=== PATIENT | female | born 1990 | race Two or more races ===

== ENCOUNTER → 2018-08-25 | Outpatient (CLI) | payer BC, OTHER ==
[~2018-08-25] MED LIST: DOCU240C31 PO; IBUP-1222 PO; METF500T17 PO; OXYC-302 PO; ZOLM5TAB10 PO
[2018-08-25 16:17] LABS: BASOPHILS # (AUTO) 0.13 x10^3/uL (0-0.1); BASOPHILS % (AUTO) 1 % (0-1); EOSINOPHILS # (AUTO) 0.26 x10^3/uL (0-0.4); EOSINOPHILS % (AUTO) 2 % (1-7); LYMPHOCYTES # (AUTO) 4.35 x10^3/uL (1-3.4); LYMPHOCYTES % (AUTO) 35 % (22-44); MD NO; MEAN CORPUSCULAR HEMOGLOBIN 27.8 pg (27.0-34.8); MEAN CORPUSCULAR HGB CONC 33.1 g/dL (32.4-35.8); MEAN CORPUSCULAR VOLUME 83.9 fL (80-100); MEAN PLATELET VOLUME 9.8 fL (7.4-10.4); MONOCYTES # (AUTO) 0.67 x10^3/uL (0.2-0.8); MONOCYTES % (AUTO) 6 % (2-9); NEUTROPHILS # (AUTO) 6.97 x10^3/uL (1.8-6.8); NEUTROPHILS % (AUTO) 56 % (42-75); PLATELET COUNT 294 x10^3/uL (130-400); RED CELL DISTRIBUTION WIDTH 15.3 % (9.6-15.2)
[2018-08-25 16:24] LABS: ANION GAP 5 mmol/L (5-15); CHLORIDE 108 mmol/L (98-107)
[2018-08-25 16:25] LABS: ALANINE AMINOTRANSFERASE 43 U/L (12-78); ALBUMIN 3.8 g/dL (3.4-5.0); CALCIUM 8.9 mg/dL (8.5-10.1); CREATININE 1.17 mg/dL (0.55-1.02)
[2018-08-25 16:27] LABS: ALKALINE PHOSPHATASE 70 U/L (45-117); BILIRUBIN,TOTAL 0.3 mg/dL (0.2-1.0)
== END | disposition home or self-care (01) ==
LOC: STAR 15:33
PROVIDERS: ATTEND Obstetrics & Gynecology
DX: Z01.818 Encounter for other preprocedural examination (principal)
CPT/HCPCS: 36415; 80053; 85025; 93005

== ENCOUNTER 2018-09-01 10:53 | Day surgery (SDC) | payer BC, OTHER ==
[~2018-09-01] VITALS: Ht 157.5 cm; Wt 90.6 kg
[~2018-09-01 10:53] MED LIST changes: +BUPIVACAINE/PF 0.25% ONE; +EPINEPHRINE 1 MG/ML, 1ML ONE; +SILVER NITRATE STICK TP ONE
[2018-09-01] MEDS ORDERED: LACTATED RINGERS 1,000 ML IV SCH ×2 (11:19→22:00)
[2018-09-01] MEDS ORDERED: APREPITANT 40 MG CAPSULE PO ONE (11:30)
[2018-09-01 11:41] LABS: HCG UR SG 1.024 (1.003-1.030)
[2018-09-01 11:45] VITALS: BP 113/75
[2018-09-01 12:50] LABS: BASOPHILS # (AUTO) 0.04 x10^3/uL (0-0.1); BASOPHILS % (AUTO) 1 % (0-1); EOSINOPHILS # (AUTO) 0.23 x10^3/uL (0-0.4); EOSINOPHILS % (AUTO) 3 % (1-7); LYMPHOCYTES # (AUTO) 3.61 x10^3/uL (1-3.4); LYMPHOCYTES % (AUTO) 46 % (22-44); MD NO; MEAN CORPUSCULAR HEMOGLOBIN 27.5 pg (27.0-34.8); MEAN CORPUSCULAR VOLUME 83.2 fL (80-100); MONOCYTES # (AUTO) 0.46 x10^3/uL (0.2-0.8); MONOCYTES % (AUTO) 6 % (2-9); NEUTROPHILS # (AUTO) 3.58 x10^3/uL (1.8-6.8); NEUTROPHILS % (AUTO) 45 % (42-75); PLATELET COUNT 311 x10^3/uL (130-400); RED BLOOD COUNT 5.32 x10^6/uL (3.82-5.3); RED CELL DISTRIBUTION WIDTH 14.9 % (9.6-15.2)
[2018-09-01] MEDS ORDERED: SILVER NITRATE STICK TP ONE (16:09)
[2018-09-01] MEDS ORDERED: BUPIVACAINE/PF 0.25% ONE (16:09)
[2018-09-01] MEDS ORDERED: EPINEPHRINE 1 MG/ML, 1ML ONE (16:09)
[2018-09-01] MEDS ORDERED: MIDAZOLAM 1 MG/ML, 2ML ONE (16:40)
[2018-09-01] MEDS ORDERED: FENTANYL PF 250 MCG/5ML ONE (16:41)
[2018-09-01] MEDS ORDERED: SUGAMMADEX 200 MG/2 ML IVPush ONE (17:36)
[2018-09-01] MEDS ORDERED: CEFAZOLIN 1,000 MG ONE (17:45)
[2018-09-01] MEDS ORDERED: SUCCINYLCHOLINE 20 MG/ML, 10ML ONE (17:45)
[2018-09-01] MEDS ORDERED: PROPOFOL 10 MG/ML, 20ML ONE (17:45)
[2018-09-01] MEDS ORDERED: ONDANSETRON 2MG/ML, 2ML ONE (17:45)
[2018-09-01] MEDS ORDERED: GLYCOPYRROLATE 0.2MG/1ML, 5ML ONE (17:45)
[2018-09-01] MEDS ORDERED: ROCURONIUM 10MG/ML,5ML ONE (17:45)
[2018-09-01] MEDS ORDERED: DEXAMETHASONE 4 MG/ML, 1ML ONE (17:45)
[2018-09-01] MEDS ORDERED: NEOSTIGMINE 1 MG/ML, 10ML ONE (17:45)
[2018-09-01] MEDS ORDERED: OXYcodone 5 MG/5 ML ORAL.SOL UDC ONE (18:06)
[2018-09-01] MEDS ORDERED: FENTANYL PF 100 MCG/2ML ONE (18:06)
[2018-09-01] MEDS ORDERED: HYDROmorphone 2 MG/ML, 1ML ONE (18:06)
[2018-09-01] MEDS: HYDROmorphone 2 MG/ML, 1ML IVPush PRN ×4 (18:10→18:56)
[2018-09-01] MEDS: FENTANYL PF 100 MCG/2ML IV PRN ×2 (18:10→18:19)
[2018-09-01] MEDS ORDERED: KETOROLAC 30 MG/1 ML ONE (18:10)
[2018-09-01] MEDS ORDERED: LORazepam 2 MG/ML, 1ML ONE (18:26)
[2018-09-01] MEDS ORDERED: ACETAMINOPHEN 325 MG TABLET PO PRN (18:30)
[2018-09-01] MEDS ORDERED: MEPERIDINE/PF 25MG/0.5ML IVPush PRN (18:30)
[2018-09-01] MEDS ORDERED: KETOROLAC 30 MG/1 ML IVPush ONE (18:30)
[2018-09-01] MEDS ORDERED: PROMETHAZINE 25 MG/ML, 1ML IV PRN (18:30)
[2018-09-01] MEDS ORDERED: LORazepam 2 MG/ML, 1ML IVPush PRN (18:30)
[2018-09-01] MEDS ORDERED: OXYcodone 5 MG/5 ML ORAL.SOL UDC PO PRN (18:30)
[2018-09-01] MEDS ORDERED: ONDANSETRON 2MG/ML, 2ML IV PRN ×2 (18:30→22:00)
[2018-09-01] MEDS ORDERED: ONDANSETRON ODT 8 MG PO PRN (18:30)
[2018-09-01] MEDS ORDERED: morphine SULFATE 10 MG/ML, 1ML IV PRN (22:00)
[2018-09-01] MEDS ORDERED: KETOROLAC 30 MG/1 ML IV PRN (22:00)
[2018-09-01] MEDS ORDERED: OXYcodone/APAP 5/325MG TABLET PO PRN (22:00)
[2018-09-01] MEDS ORDERED: IBUPROFEN 600 MG TABLET PO PRN (22:00)
== END 2018-09-01 23:15 | disposition home or self-care (01) ==
LOC: OUT 10:53 → 4NOR 19:35 → OUT 23:15
PROVIDERS: ATTEND Obstetrics & Gynecology
DX: Z30.2 Encounter for sterilization (principal); E11.9 Type 2 diabetes mellitus without complications; G43.909 Migraine, unspecified, not intractable, without status migrainosus; Z98.890 Other specified postprocedural states; Z90.49 Acquired absence of other specified parts of digestive tract; Z79.899 Other long term (current) drug therapy; Z79.84 Long term (current) use of oral hypoglycemic drugs
CPT/HCPCS: 36415; 58661; 81025; 82962; 85025; 86850; 86900; 88302; J0171; J0330; J0690; J1100; J1170; J1885; J2060; J2250; J2405; J2704; J2710; J3010; J3490; J7120; J8501; G0378

== ENCOUNTER 2020-11-21 05:42 | Day surgery (SDC) | payer BC ==
[2020-11-18 15:55] LABS: ALANINE AMINOTRANSFERASE 73 U/L (12-78); ALBUMIN 3.4 g/dL (3.4-5.0); ANION GAP 5 mmol/L (5-15); BASOPHILS % (AUTO) 1 % (0-1); CALCIUM 8.8 mg/dL (8.5-10.1); CHLORIDE 108 mmol/L (98-107); CREATININE 0.71 mg/dL (0.55-1.02); EOSINOPHILS % (AUTO) 2 % (1-7); LYMPHOCYTES % (AUTO) 42 % (22-44); MEAN CORPUSCULAR HEMOGLOBIN 28.4 pg (27.0-34.8); MEAN CORPUSCULAR HGB CONC 33.6 g/dL (32.4-35.8); MEAN PLATELET VOLUME 9.7 fL (7.4-10.4); MONOCYTES % (AUTO) 5 % (2-9); NEUTROPHILS % (AUTO) 50 % (42-75); PLATELET COUNT 268 x10^3/uL (130-400); RED BLOOD COUNT 4.87 x10^6/uL (3.82-5.3); RED CELL DISTRIBUTION WIDTH 16.1 % (9.6-15.2)
[2020-11-18 15:59] LABS: ALKALINE PHOSPHATASE 92 U/L (45-117); BILIRUBIN,TOTAL 0.4 mg/dL (0.2-1.0); TOTAL PROTEIN 7.6 g/dL (6.4-8.2)
[2020-11-18 16:01] LABS: MICROSCOPIC NOT IND
[~2020-11-21] VITALS: Ht 157.5 cm; Wt 87.4 kg
[~2020-11-21 05:42] MED LIST changes: -BUPIVACAINE/PF 0.25% ONE; -EPINEPHRINE 1 MG/ML, 1ML ONE; -OXYC-302 PO; +OXYC1TAB14 PO; -SILVER NITRATE STICK TP ONE; -ZOLM5TAB10 PO; +ZOLM5TAB34 PO
[2020-11-21 06:06] VITALS: BP 121/83
[2020-11-21] MEDS ORDERED: CHLORHEXIDINE 15 ML UDC PO ONE (06:30)
[2020-11-21] MEDS ORDERED: LACTATED RINGERS 1,000 ML IV SCH (06:30)
[2020-11-21] MEDS ORDERED: EPINEPHRINE 1 MG/ML, 1ML ONE (07:14)
[2020-11-21] MEDS ORDERED: MANNITOL PMX 20% 500 ML ONE (07:14)
[2020-11-21] MEDS ORDERED: BUPIVACAINE/PF 0.25% ONE (07:14)
[2020-11-21] MEDS ORDERED: FENTANYL PF 250 MCG/5ML ONE (07:21)
[2020-11-21] MEDS ORDERED: MIDAZOLAM 1 MG/ML, 2ML ONE (07:21)
[2020-11-21] MEDS ORDERED: MEPERIDINE/PF 25MG/0.5ML IVPush PRN (07:30)
[2020-11-21] MEDS ORDERED: LABETALOL 5MG/ML, 20ML IV PRN (07:30)
[2020-11-21] MEDS ORDERED: HALOPERIDOL 5 MG/ML IV PRN (07:30)
[2020-11-21] MEDS ORDERED: DIPHENHYDRAMINE 50 MG/ML, 1ML IVPush PRN (07:30)
[2020-11-21] MEDS ORDERED: hydrALAzine 20 MG/ML, 1ML IV PRN (07:30)
[2020-11-21] MEDS ORDERED: PROMETHAZINE 25 MG/ML, 1ML IVPush PRN (07:30)
[2020-11-21] MEDS ORDERED: ACETAMINOPHEN 325 MG TABLET PO PRN (07:30)
[2020-11-21] MEDS ORDERED: EPHEDRINE 50 MG/ML, 1ML ONE (07:49)
[2020-11-21] MEDS ORDERED: HYDROmorphone 1 MG/ML, 1ML INJ ONE ×2 (08:52→10:25)
[2020-11-21] MEDS ORDERED: GLYCOPYRROLATE 0.2MG/1ML, 5ML ONE (09:06)
[2020-11-21] MEDS ORDERED: SUCCINYLCHOLINE 20 MG/ML, 10ML ONE (09:06)
[2020-11-21] MEDS ORDERED: ROCURONIUM 10MG/ML,5ML ONE (09:06)
[2020-11-21] MEDS ORDERED: CEFAZOLIN 1,000 MG ONE (09:06)
[2020-11-21] MEDS ORDERED: PROPOFOL 10 MG/ML, 20ML ONE (09:06)
[2020-11-21] MEDS ORDERED: DEXAMETHASONE 4 MG/ML, 1ML ONE (09:06)
[2020-11-21] MEDS ORDERED: ONDANSETRON 2MG/ML, 2ML ONE (09:06)
[2020-11-21] MEDS ORDERED: NEOSTIGMINE 1 MG/ML, 10ML ONE (09:06)
[2020-11-21] MEDS ORDERED: PROMETHAZINE 25 MG/ML, 1ML ONE (09:32)
[2020-11-21] MEDS ORDERED: OXYcodone 5 MG/5 ML ORAL.SOL UDC ONE (09:44)
[2020-11-21] MEDS ORDERED: FENTANYL PF 100 MCG/2ML ONE (09:44)
[2020-11-21] MEDS: FENTANYL PF 100 MCG/2ML IV PRN ×2 (09:46→10:00)
[2020-11-21] MEDS: OXYcodone 5 MG/5 ML ORAL.SOL UDC PO PRN ×2 (10:04→14:16)
[2020-11-21] MEDS: HYDROmorphone 1 MG/ML, 1ML INJ IVPush PRN ×2 (10:27→10:33)
[2020-11-21] MEDS ORDERED: KETOROLAC 30 MG/1 ML IVPush PRN (14:00)
[2020-11-21] MEDS ORDERED: OXYcodone 5 MG/5 ML ORAL.SOL UDC PO PRN (14:00)
== END 2020-11-21 17:45 | disposition home or self-care (01) ==
LOC: OUT 05:42
PROVIDERS: ATTEND Obstetrics & Gynecology Gynecology
DX: N80.0 Endometriosis of uterus (principal); N94.6 Dysmenorrhea, unspecified; N87.9 Dysplasia of cervix uteri, unspecified; E28.2 Polycystic ovarian syndrome; N73.6 Female pelvic peritoneal adhesions (postinfective); G43.909 Migraine, unspecified, not intractable, without status migrainosus; Z20.822 Contact with and (suspected) exposure to COVID-19; Z79.899 Other long term (current) drug therapy; Z98.51 Tubal ligation status; Z98.890 Other specified postprocedural states; Z83.3 Family history of diabetes mellitus
CPT/HCPCS: 36415; 58571; 80053; 81003; 81025; 84702; 85025; 86850; 86900; 88307; J0171; J0330; J0690; J1100; J1170; J1885; J2250; J2405; J2550; J2704; J2710; J3010; J7120; U0003; U0005